=== PATIENT | male | born 1980 | race Two or more races ===

== ENCOUNTER 2025-04-09 00:41 | Emergency (ER) | payer MEDICAID, OTHER ==
[~2025-04-09] VITALS: Ht 198.1 cm; Wt 113.0 kg
[2025-04-09 01:00] VITALS: BP 138/91; PULSE 95; RESP 18; TEMP 97.9; O2SAT 95
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
== END 2025-04-09 01:14 | disposition home or self-care (01) ==
LOC: EDBD 00:41 → ER 00:41
DX: Z02.89 Encounter for other administrative examinations (principal); V89.2XXA Person injured in unspecified motor-vehicle accident, traffic, initial encounter; Y93.I9 Activity, other involving external motion; Y92.488 Other paved roadways as the place of occurrence of the external cause; Y99.8 Other external cause status